=== PATIENT | male | born 1970 | race Caucasian/White ===

== ENCOUNTER 2022-03-14 09:30 | Day surgery (SDC) | payer OTHER, SELFPAY ==
[2022-03-14] VITALS (16 sets, daily range): BP systolic 101–145; BP diastolic 50–88; PULSE 71–89; RESP 16; TEMP 36.4–36.6; O2SAT 97–100; BMI 27.1
[2022-03-14] MEDS: LACTATED RINGERS 1000 ML 1,000 ML 100 ML IV ×2 (09:50→13:57)
[2022-03-14] MEDS: SODIUM CHLORIDE 0.9 % (FLUSH) 10 ML SYRINGE IVF (10:14)
[2022-03-14] MEDS: MIDAZOLAM HCL 1 MG/ML inj IVP (10:20)
[2022-03-14] MEDS: fentaNYL 100 MCG/2 ML inj IVP (10:20)
--- NOTE | 2022-03-14 10:28 | SUR.PREOP ---
TIME?OUT:?1019 PT/RN/MDA?VERIFICATION?OF?SURGICAL?SITE,?PROCEDURE,?AND?CONSENT OBTAINED?PRIOR?TO?INVASIVE?PROCEDURE.
--- NOTE | 2022-03-14 10:30 | CRLHL7_ITS ---
For Patients: As a result of the Cures Act, medical imaging exams and procedure reports are released immediately into your electronic medical record. You may view this report before your referring provider. If you have questions, please contact your health care provider. Indication: ORIF right ankle Technique: Three fluoroscopic images right ankle. Fluoroscopic time 120.7 seconds. IMPRESSION: Fluoroscopic guidance for open reduction internal fixation of lateral malleolus fracture and medial malleolus fracture. Dictated by Matheus Martinez MD @ 03/14/2022 1:16:29 PM (Electronically Signed)
[2022-03-14] MEDS: CEFAZOLIN 2 GM INJ IVP (10:32)
--- NOTE | 2022-03-14 11:47 | W.ANESCHARGE ---
Anesthesia Charges Start Date/Time Anesthesia Start Date: 03/14/22 Anesthesia Start Time: 10:26 Stop Date/Time Anesthesia Stop Date: 03/14/22 Anesthesia Stop Time: 13:15 Summary Emergency: No
--- NOTE | 2022-03-14 11:47 | W.PM.NB ---
Nerve Block Nerve Block Time Seen by Provider: 10:24 Date Seen: 03/14/22 Type of block requested by surgeon for post-operative analgesia: popliteal Side: right Time out performed: Yes Verification of patient name: Yes Verification of date of : Yes Site marking: site marked Name of person performing procedure: Hong Continuous monitoring Was continuous monitoring of O2 sat, B/P, centrifugal separator, recorded every 15 minutes?: Yes Procedure Checklist: sterile prep, needles and gloves Ultrasound guided. Images saved: Yes Medications given in 5ml increments after negative aspiration: Ropivicaine %: 0.5 mL: 20 Needle gauge: 22 Patient tolerated procedure well: Yes Additional comments: Needle noted adjacent to nerve Block Charges Block Charge (with Pro Fee): Sciatic Nerve Use of Ultrasound Machine for Block: Yes- US Guidance/pain block
--- NOTE | 2022-03-14 11:48 | W.PM.NB ---
Nerve Block Nerve Block Time Seen by Provider: 10:24 Date Seen: 03/14/22 Type of block requested by surgeon for post-operative analgesia: adductor canal Side: right Time out performed: Yes Verification of patient name: Yes Verification of date of : Yes Site marking: site marked Name of person performing procedure: Hong Continuous monitoring Was continuous monitoring of O2 sat, B/P, cardiac rehabilitation specialist, recorded every 15 minutes?: Yes Procedure Checklist: sterile prep, needles and gloves Ultrasound guided. Images saved: Yes Medications given in 5ml increments after negative aspiration: Ropivicaine %: 0.5 mL: 20 Needle gauge: 20 Decadron (mg): 10 Precedex (mcg): 25 Patient tolerated procedure well: Yes Additional comments: Needle noted adjacent to nerve Block Charges Block Charge (with Pro Fee): Femoral Nerve Use of Ultrasound Machine for Block: Yes- US Guidance/pain block
[2022-03-14] MEDS: BUPIVACAINE 0.5% 30 ML INJECTION (12:38)
--- NOTE | 2022-03-14 13:15 | W.ANESCHARGE ---
Anesthesia Charges Start Date/Time Anesthesia Start Date: 03/14/22 Anesthesia Start Time: 10:26 Stop Date/Time Anesthesia Stop Date: 03/14/22 Anesthesia Stop Time: 13:15 Summary Emergency: No
--- NOTE | 2022-03-14 13:29 | P.GSOP_ITS ---
Operative Note Date of procedure: 03/14/22 Pre-op diagnosis: Trimalleolar ankle fracture right Post-op diagnosis: Trimalleolar ankle fracture right Type of Procedure: ORIF trimalleolar ankle fracture right with syndesmotic repair Indications: Patient was seen in clinic for her trimalleolar ankle fracture. Fracture was highly unstable require surgical intervention. I reviewed the procedure, recovery, expectations and potential complications with the patient. These include but are not limited to: Poor wound healing, infection, continued pain, nerve injury, hardware irritation, nonunion, potential need for future surgery, deep venous thrombosis, pulmonary embolism, possible . All questions answered written consent was obtained. Procedure Description: Preoperative diagnosis: Trimalleolar ankle fracture right Postoperative diagnosis: Trimalleolar ankle fracture right Procedure: ORIF trimalleolar ankle fracture right with syndesmotic repair After discussing the risks and benefits of the procedure, the patient signed informed consent.? The operative site was marked and the patient was brought to the operating room and placed on the operating table in supine position.? Anesthesia performed a preoperative popliteal adductor block. Care was taken to pad the patient's pressure points.?? The patient was then intubated by anesthesia.?? The operative site was then prepped and draped in the usual sterile fashion.? A time-out was then performed. The right limb was exsanguinated and the thigh tourniquet inflated to 300 mm Hg. Linear incisions made over the distal right fibula. Incision was carried down through skin subcutaneous tissues. Blunt dissection carried down through superficial and deep fascia. Significant periosteal stripping noted. Evacuation of significant sign of clotted blood removed. A fracture is identified and periosteum reflected away from the bone. Fracture was debrided. Reduction forceps were then used to reduce the fibular fracture and anatomic alignment. C-arm confirmed position. 3.0 mm cortical screw was inserted from posterior to anterior across the fracture site using standard lag technique. Reduction forceps removed and the fracture remained anatomically aligned in both length and rotation. Pre contoured distal fibular plate was then applied l aterally and fixated to the bone with a 3.5 mm nonlocking screw proximal to the fracture. C-arm confirmed excellent position. Four 2.7 mm locking screws were placed in the lateral malleolus distal to the fracture. Three 3.5 mm locking screws were placed proximal to the fracture. Wound was thoroughly irrigated normal sterile saline. Linear incision was then made over the medial malleolus fracture. Incision was carried down through skin subcutaneous tissues. Blunt dissection carried down to the fracture site. Significant periosteal stripping and invagination into the fracture was noted. Fracture site was debrided. The ankle joint was easily visible through the fracture and the talar dome was free of any cartilaginous injury. Joint was thoroughly irrigated normal sterile saline. Large reduction forceps was then used to reduce the fracture in anatomic alignment. Direct visualization and C-arm confirmed anatomic position. Guide pins were then placed across the medial malleolar fracture into the tibia. C-arm was used for guidance. Two 50 mm partially threaded cannulated screws were placed. Excellent purchase was obtained and good compression across the fracture noted. Guide pin from the tightrope set was placed through the appropriate hole in the fibular plate and driven across the fibula and tibia. This was done under C-arm guidance. Medially we could identify the guide pin exiting the tibia directly through the medial incision has found to be in optimal position. We then drilled over the guide pin and a tight rope placed. With the foot held in dorsiflexion the tight rope was tensioned appropriately. A 2nd tightrope was placed proximal to the 1st utilizing the exact same technique. Stress views confirmed stability throughout the ankle mortise and anatomic alignment was maintained. Multiple C-arm images showed the posterior malleolar fragment to be reduced and less than 25% of the overall joint surface. In light of this it did not require fixation. Wounds irrigated with normal sterile saline. Tourniquet was released no active bleeding noted. Deep and superficial fascia were reapproximated with 3-0 Vicryl. Subcutaneous tissues reapproximated with 3-0 Monocryl and skin was closed with ro. 20 mL of 0.5% Marcaine plain injected along the incisions. Sterile dressing was applied. His placed into a cam boot. ? The patient was then woken and transported to the recovery area in stable condition. The patient tolerated the procedure well. Both written verbal postop instructions given. He is given oxycodone for pain. He is to remain in the cam boot and nonweightbearing with crutches. Follow-up appointment next week. He will start aspirin therapy tomorrow. Findings: Complications: None apparent Implants: Arthrex precontoured distal fibular plate x1, 3.5 mm nonlocking screw x1, 3.0 cortical screw x 1, 3.5 mm locking screw x3, 2.7 mm locking screw x4, tight rope x2 Anesthesia: GETA and regional Surgeon: Kenan Miller DPM Estimated blood loss (mL): 15 Condition: stable Disposition: PACU
== END 2022-03-14 16:15 | disposition home or self-care (01) ==
PROVIDERS: PCP Internal Medicine; Visit Provider Podiatrist
PROC: (CPT 27823; principal; 2022-03-14 10:30)
DX: S82.851A Displaced trimalleolar fracture of right lower leg, initial encounter for closed fracture (principal); M25.571 Pain in right ankle and joints of right foot
CPT/HCPCS: 27823; 01480; 64445; 64447; 73610; 76000; 76942; C1713; J0690; J1100; J2250; J2405; J2704; J2795; J3010; J3490; J7120